=== PATIENT | female | born 1955 | race Caucasian/White ===

== ENCOUNTER → 2022-02-12 13:53 | Outpatient (BNVA) | payer OTHER, SELFPAY | PROVIDERS: PCP Pediatrics; Visit Provider Surgery | DX: L72.3 Sebaceous cyst (principal) | CPT/HCPCS: 99202 ==

== ENCOUNTER → 2022-02-19 13:36 | Outpatient (BNVA) | payer OTHER, SELFPAY | PROVIDERS: PCP Pediatrics; Visit Provider Surgery | DX: L72.3 Sebaceous cyst (principal) | CPT/HCPCS: 11403; 99212 ==

== ENCOUNTER 2022-02-19 16:53 | Outpatient (REF) | payer OTHER, SELFPAY | END 2022-02-19 16:54 | disposition home or self-care (01) | LOC: HO.LNP 16:53 | PROVIDERS: Visit Provider Surgery | DX: L72.3 Sebaceous cyst (principal) | CPT/HCPCS: 88304 ==

== ENCOUNTER 2022-12-25 11:05 | Outpatient (REF) | payer OTHER, SELFPAY ==
[2022-12-25 14:26] LABS: MANUAL DIFF FLAG NO
[2022-12-25 14:41] LABS: Basophils Percent Auto 0.6 % (0-2); Eosinophils Absolute Auto 0.1 X10*3/uL (0.0-0.4); Eosinophils Percent Auto 1.9 % (0-4); Hematocrit 41.7 % (37.0-47.0); Hemoglobin 13.5 g/dl (12.0-16.0); Imm Gran Abs Auto 0.01 X10*3/uL (0.00-0.03); Imm Gran Pct Auto 0.2 % (0.0-0.4); Lymphocytes Absolute Auto 2.1 X10*3/uL (1.2-4.9); Lymphocytes Percent Auto 32.7 % (20-40); Mean Corpuscular HGB Conc 32.4 g/dl (31.0-35.0); Mean Corpuscular Hemoglobin 28.8 pg (27.0-33.0); Mean Corpuscular Volume 89.1 fL (80.0-98.0); Mean Platelet Volume 10.3 fL (9.4-12.3); Monocytes Absolute Auto 0.4 X10*3/uL (0.1-1.2); Monocytes Percent Auto 6.7 % (2-11); Neutrophils Absolute Auto 3.7 x10*3/uL (2.0-8.3); Neutrophils Percent Auto 57.9 % (45-73); Platelet Count 284 X10*3/uL (160-400); Red Blood Count 4.68 X10*6/uL (4.20-5.50); Red Cell Distribution Width 13.1 % (11.0-16.0); White Blood Count 6.4 X10*3/uL (4.8-10.8)
[2022-12-25 14:52] LABS: Alanine Aminotransferase 14 U/L (0-31); Albumin Level 4.5 g/dL (3.5-5.0); Alkaline Phosphatase 73 U/L (39-117); Anion Gap 12 (12-20); Aspartate Amino Transferase 19 U/L (5-31); Bilirubin Total 1.1 mg/dL (0.0-1.0); Blood Urea Nitrogen 8 mg/dL (9-16); Calcium 9.6 mg/dL (8.4-10.2); Carbon Dioxide 27 mmol/L (22-29); Chloride 106 mmol/L (96-108); Estimated Glomerular Filt Rate > 60; Glucose Fasting 93 mg/dL (60-99); Potassium 3.6 mmol/L (3.3-5.1); Sodium 141 mmol/L (135-145); Total Protein 7.8 g/dL (6.5-8.0)
[2022-12-26 02:22] LABS: CT PCR NOT DETECTED (Not Detect.); NG PCR NOT DETECTED (Not Detect.)
[2022-12-26 16:00] LABS: BV Int Neg Control Negative (Negative); BV Int Pos Control Positive (Positive)
== END 2022-12-25 11:06 | disposition home or self-care (01) ==
LOC: HO.CHCLDS 11:05
PROVIDERS: Visit Provider Family Medicine
DX: R10.2 Pelvic and perineal pain (principal)
CPT/HCPCS: 0353U; 36415; 80053; 85025; 87086; 87480; 87510; 87660

== ENCOUNTER 2023-01-16 11:11 | Outpatient (REF) | payer OTHER, SELFPAY ==
--- NOTE | ~2023-01-16 | US_ITS ---
EXAMINATION: US PELVIS CLINICAL INFORMATION: Pelvic pain. COMPARISON: None available. TECHNIQUE: Transabdominal pelvic ultrasound was performed. The patient was offered transvaginal examination but she declined stating she had a painful transvaginal exam at [facility] 01/15/2023. FINDINGS: The patient reports hysterectomy and bilateral oophorectomy. No pelvic mass visible. US/US pelvic complete IMPRESSION: Hysterectomy and bilateral oophorectomy. No pelvic mass identified with transabdominal imaging. The patient declined transvaginal examination.
== END 2023-01-16 11:12 | disposition home or self-care (01) ==
LOC: HO.US 11:11
PROVIDERS: PCP Pediatrics; Visit Provider Family Medicine
DX: R10.2 Pelvic and perineal pain (principal)
CPT/HCPCS: 76856

== ENCOUNTER 2023-08-28 17:26 | Outpatient (REF) | payer OTHER, SELFPAY | END 2023-08-28 17:27 | disposition home or self-care (01) | LOC: HO.LNP 17:26 | PROVIDERS: Visit Provider General Practice | DX: R39.9 Unspecified symptoms and signs involving the genitourinary system (principal) | CPT/HCPCS: 87086 ==

== ENCOUNTER 2023-09-10 14:19 | Outpatient (REF) | payer OTHER, SELFPAY ==
--- NOTE | ~2023-09-10 | US_ITS ---
EXAMINATION: US RETROPERITONEAL LIMITED (RENAL ONLY) Indication: Microscopic hematuria with back pain EXAMINATION: Renal ultrasound. The right kidney is 10 x 5.4 x 5 cm. There is felt to be mild hydronephrosis. Etiology is indeterminate on this study. The left kidney does not demonstrate evidence for hydronephrosis. Several hypoechoic areas are demonstrated which may well represent cysts. Largest in the midpole 1 x 1 cm. Several foci of increased echogenicity are seen. One measuring 7 x 5 mm in the lower pole and another measuring 1.2 x 0.8 cm in the lower pole. Suspicious for renal calculi.. The kidney is suboptimally visualized. US/US renal BI IMPRESSION: Findings suggest mild hydronephrosis on the right etiology indeterminate. On the left findings suggest nonobstructing calculi associated with the left kidney and a few cysts are seen here. The left kidney is incompletely visualized.
== END 2023-09-10 14:20 | disposition home or self-care (01) ==
LOC: HO.US 14:19
PROVIDERS: PCP Pediatrics; Visit Provider Pediatrics
DX: R31.29 Other microscopic hematuria (principal); M54.9 Dorsalgia, unspecified; G89.29 Other chronic pain; Z87.442 Personal history of urinary calculi
CPT/HCPCS: 76775

== ENCOUNTER 2024-01-25 | Outpatient (REF) | payer OTHER, SELFPAY | END 2024-01-25 00:01 | disposition home or self-care (01) | LOC: HO.HHCLNP | PROVIDERS: Visit Provider Internal Medicine | DX: R39.9 Unspecified symptoms and signs involving the genitourinary system (principal) | CPT/HCPCS: 87086 ==

== ENCOUNTER 2024-11-04 09:07 | Outpatient (REF) | payer OTHER, SELFPAY ==
--- OUTSIDE RECORDS SUMMARY | 2024-11-04 09:12 | XMS_ITS | Clinical Summary ---
Author Organization [facility] ity Address [address] [place] [address] Care Team Providers Care Children Counselor Name Role Phone Unavailable Primary Care Provider Unavailabl e Social History Tobacco Use Types Packs/Day Years Used Date Smoking Tobacco: Never Assessed Comments Unknown Sex and Gender Information Value Date Recorded Sex Assigned at Not on file Legal Sex Female 1:55 AM EST Gender Identity Not on file Sexual Orientation Not on file Plan of Treatment Health Maintenance Due Date Last Done Comments Breast Cancer Screening 1955 DTaP,Tdap,and Td Vaccines (1 - Tdap) 1975 Pneumococcal Vaccine: 50+ Ye ars (1 of 1 - PCV) 2006 Zoster Vaccines (1 of 2) 2006 Colorectal Cancer Screening: Colonoscopy 03/23/2022 Falls Risk Assessment 03/23/2022 Hepatitis C Screening 03/23/2022 Osteoporosis Screening (Bone Density Screening) 03/23/2022 Social Influencers of Health Screening 03/23/2022 COVID-19 Vaccine (1 - 2023-2 5 season) 2023 Depression Screening 04/20/2024 Influenza Vaccine (#1) 2024 RSV Immunization Adult Patie nts (1 - 1-dose 75+ series) 2031 HIB Vaccines Aged Out No longer eligi ble based on patient's age to complete this topic HPV Vaccines Aged Out No longer eligi ble based on patient's age to complete this topic Hepatitis A Vaccines Aged Out No long er eligible based on patient's age to complete this topic Hepatitis B Vaccines Aged Out No long er eligible based on patient's age to complete this topic IPV Vaccines Aged Out No longer eligi ble based on patient's age to complete this topic MMR Vaccines Aged Out No longer eligi ble based on patient's age to complete this topic Meningococcal ACWY Vaccine Aged Out N o longer eligible based on patient's age to complete this topic Meningococcal B Vaccine Aged Out No l onger eligible based on patient's age to complete this topic RSV Immunization Patients Un ez 20 months Aged Out No longer eligible b ased on patient's age to complete this topic Varicella Vaccines Aged Out No longer eligible based on patient's age to complete this topic
--- OUTSIDE RECORDS SUMMARY | 2024-11-04 09:12 | XMS_ITS | Clinical Summary ---
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 022 Active naloxone (Narcan) 4 mg/0.1 mL nasal spray Administer 0.1 mL into affected nostril(s). 022 Active fluticasone (Flonase) 50 MCG/ACT nasal spray SPRAY ONCE IN EACH NOSTRIL ONCE DAILY 16 g 5 023 Active lidocaine (Lidoderm) 5 % patch Apply 1 patch topically in the morning. Remove & discard patch within 12 hours or as directed by MD. 30 patch 3 023 Active hydrocortisone acetate 1 % ointment Apply 1 Application. topically if needed in the morning, at noon, in the evening, and at bedtime (rectal itching). 30 g 1 024 Active witch keila-glycerin (Tucks) pad Apply topically if needed for irritation. 40 each 1 024 Active clotrimazole (Lotrimin) 1 % cream 023 Active cyanocobalamin (Vitamin B-12) 1000 MCG tablet Active hydrocortisone 1 % ointment APPLY TO THE AFFECTED AREA TOPICALLY NEEDED IN THE MORNING, AT NOON, IN THE EVENING, AND AT BEDTIME RECTALLY Active melatonin 10 MG tablet 04/25/2 024 Active Neomycin-Bacitrac in-Polymyxin (Triple Antibiotic) 3.5-400-5000 ointment 023 Active ondansetron ODT (Zofran-ODT) [address] 1 TAB UNDER THE TONGUE TO DISSOLVE EVERY 6 HOURS NEEDED FOR NAUSEA AND FOR VOMITING 024 Active prazosin (Minipress) 5 MG capsule 023 Active rOPINIRole (Requip) 0.25 MG tablet 024 Active Witch Keila (Hemorrhoidal) 50 % pads Apply topically if needed. 024 Active hydrocortisone 2.5 % creamIndications: Spider bite wound, accidental or unintentional, initial encounter Apply topically 2 times daily. 20 g 024 Active diphenhydrAMINE (Benadryl Allergy) 25 MG tabletIndications :Spider bite wound, accidental or unintentional, initial encounter Take 1 tablet (25 mg) by mouth every 6 (six) hours if needed for itching. 30 tablet 024 Active lisinopril 10 MG tablet Take 1 tablet (10 mg) by mouth Once per day. 30 tablet 11 024 2024 Active atorvastatin (Lipitor) 40 MG tabletIndications :Mixed hyperlipidemia TAKE 1 TABLET BY MOUTH ONCE DAILY AT BEDTIME 30 tablet 11 024 Active cholecalciferol VITAMIN D (Vitamin D-3) 50 MCG (2000 UT) capsuleIndication s:Vitamin D deficiency,Benign essential hypertension,West rgy, initial encounter Take 1 capsule (50 mcg) by mouth Once per day. 180 capsule 3 025 Active zolpidem (Ambien) 10 MG tabletIndications :Primary insomnia TAKE 1 TABLET BY MOUTH EVERY NIGHT AT BEDTIME NEEDED FOR SLEEP 30 tablet 025 Active loratadine (Claritin) 10 MG tabletIndications :Vitamin D deficiency,Benign essential hypertension,West rgy, initial encounter TAKE 1 TABLET BY MOUTH ONCE DAILY 90 tablet 3 025 Active zolpidem (Ambien) 10 MG tabletIndications :Primary insomnia TAKE 1 TABLET BY MOUTH ONCE DAILY AT BEDTIME NEEDED FOR SLEEP 30 tablet 025 Active Calcium 600 1500 (600 Ca) MG tabletIndications :Vitamin D deficiency,Postme nopausal osteoporosis TAKE 1 TABLET BY MOUTH two (2) times a day (BREAKFAST AND DINNER) 60 tablet 11 025 Active albuterol 108 (90 Base) MCG/ACT inhalerIndication s:Vitamin D deficiency,Benign essential hypertension,West rgy, initial encounter INHALE 2 PUFF BY MOUTH EVERY 4 HOURS NEEDED FOR SHORTNESS OF BREATH OR FOR WHEEZING 8.5 g 2 025 Active alendronate (Fosamax) 70 MG tabletIndications :Vitamin D deficiency,Postme nopausal osteoporosis TAKE 1 TABLET BY MOUTH ONCE A WEEK ON AN EMPTY STOMACH WITH A FULL GLASS OF WATER. REMAIN UPRIGHT FOR AT LEAST 30 MINUTES. 4 tablet 11 025 Active cyclobenzaprine (Flexeril) 10 MG tablet Take 1 tablet (10 mg) by mouth if needed in the morning, at noon, and at bedtime for muscle spasms for up to 10 days. 30 tablet 025 Active zolpidem (Ambien) 10 MG tabletIndications :Primary insomnia TAKE 1 TABLET BY MOUTH ONCE DAILY AT BEDTIME NEEDED FOR SLEEP 30 tablet 025 Active traMADol (Ultram) 50 MG tabletIndications :Chronic pain syndrome Take 1 tablet (50 mg) by mouth every 8 (eight) hours. Do not start before October 27, 2024. 84 tablet 025 Active ARIPiprazole (Abilify) 2 MG tablet 024 2024 Discontinued benztropine (Cogentin) 0.5 MG tablet 024 2024 Discontinued(T herapy completed) carbidopa-levodop a (Sinemet) 25-100 MG tablet 023 2024 Discontinued(T herapy completed) levoFLOXacin (Levaquin) 500 MG tablet 024 2024 Discontinued(T herapy completed) levothyroxine (Synthroid, Levoxyl) 137 MCG tablet 024 2024 Discontinued(T herapy completed) LORazepam (Ativan) 1 MG tablet 024 2024 Discontinued(T herapy completed) sertraline (Zoloft) 50 MG tablet 024 2024 Discontinued(T herapy completed) amoxicillin-clavu lanate (Augmentin) 875-125 MG tabletIndications :Recurrent acute suppurative otitis media of right ear without spontaneous rupture of tympanic membrane Take 1 tablet by mouth 2 times daily. 14 tablet 024 2024 Discontinued(T herapy completed) traMADol (Ultram) 50 MG tabletIndications :Chronic pain syndrome Take 1 tablet (50 mg) by mouth every 8 (eight) hours. 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 Sent US. Routine adult health maintenance 12/25/2022 Benign essential hypertension 05/07/2017 Assessment & Plan (12/25/2022 11:00 AM EDT): Advised patient to take blood pressure at home and bring readings on next visit. Increased Lisinopril 10mg for 20mg to stabilize blood pressure. Will follow up with PCP. 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 Depressive disorder 12/24/2011 Osteochondropathy 12/24/2011 Tobacco dependence syndrome 12/24/2011 Vitamin D deficiency 12/24/2011 Encounters Date Type Department Care Team Description 11/03/2024 2:15 PM EDT Office Visit [facility] [address] [place] [address] Linda Hope MD Postmenopausal osteoporosis (Primary Dx); Benign hypertension 11/03/2024 Travel 11/02/2024 Telephone [facility] [address] [place] [address] Linda Hope MD Chart Prep 10/27/2024 Patient Outreach [facility] [address] [place] [phone] Linda Hope MD Pre-visit Planning (SDOH screening negative and Tobacco screening negative) 10/12/2024 Refill [facility] [address] [place] [address] Di Andres RN Chronic pain syndrome 10/12/2024 Telephone [facility] [address] [place] [id number] Linda Hope MD Med Refill 10/04/2024 Results Follow-Up [facility] [address] [place] [address] Linda Hope MD MR Lumbar Spine w/o Contrast 09/29/2024 Refill [facility] [address] [place] [address] Di Andres RN 09/28/2024 Refill [facility] [address] [place] [address] Linda Hope MD Chronic pain syndrome 09/28/2024 Refill [facility] [address] [place] [phone] Linda Hope MD Primary insomnia 09/15/2024 3:30 PM EDT Office Visit [facility] [address] [place] [address] Linda Hope MD Acute left-sided low back pain with left-sided sciatica (Primary Dx); Kidney stones; Postmenopausal osteoporosis; Mixed hyperlipidemia; Benign essential hypertension 09/15/2024 Travel 09/15/2024 Telephone [facility] [address] [place] [address] Linda Hope MD Nurse Triage 09/12/2024 Refill [facility] [address] [place] [address] Amaya Irwin MD Vitamin D deficiency; Postmenopausal osteoporosis 09/08/2024 Telephone [facility] [address] [place] [address] Giancarlo Self MD No Show 09/07/2024 Telephone [facility] [address] [place] [address] Linda Hope MD Nurse Triage 09/07/2024 Telephone [facility] [address] [place] [address] Linda Hope MD MRI Order 09/06/2024 1:30 PM EDT Clinical Support [facility] [address] [place] [address] Di Andres RN Back pain, unspecified back location, unspecified back pain laterality, unspecified chronicity (Primary Dx); Long-term current use of opiate analgesic 09/06/2024 Travel 09/01/2024 Refill [facility] [address] [place] [address] Aditi Day MD Vitamin D deficiency; Benign essential hypertension; Allergy, initial encounter 08/29/2024 Refill [facility] [address] [place] [address] Linda Hope MD Chronic pain syndrome 08/29/2024 Refill [facility] [address] [place] [address] Linda Hope MD Primary insomnia from Last 3 Months Immunizations Immunization Administration Dates Next Due Influenza High-dose Quadriva lent Preservative Free 12/25/2022,02/05/2022 Influenza injectable quadriv alent IIV4 with preservative 01/28/2019,01/15/2018,02/12/2017 Influenza injectable quadriv alent preservative free 01/16/2021,01/07/2016 Influenza, High Dose Seasona l, Preservative Free 02/25/2024 Influenza, IIV3, injectable 02/09/2014 Influenza, Split (incl. cassandra fied surface antigen) 02/09/2013,12/24/2011 Moderna Covid-19 Vaccine 12+ 07/17/2020,06/20/19 21 Pneumococcal Conjugate PCV 20 08/19/2022 Tdap 08/07/2015 Zoster, live 10/09/2016 Social History Tobacco Use Types Packs/Day Years Used Date Smoking Tobacco: Former Cigarettes Passive Smoke Exposure: Current Smokeless Tobacco: Never Tobacco Cessation:Counseling Given: Not Answered Alcohol Use Standard Drinks/Week Comments Not Currently 0 (1 standard drink = 0.6 oz pur e alcohol) Depression Answer Date Recorded Patient Health Questionnaire-9 Score 3 05/12/2024 Patient Health Questionnaire-9 Score 3 05/12/2024 Last PHQ-9: Questionnaire Data Not on file 0 05/12/2024 Housing Stability Answer Date Recorded What is your housing situation today? I have paulacailin vasquez 02/18/[address] you li ve. Do you have problems with any of the following? None of the above 02/18/2024 Food Insecurity Answer Date Recorded Within the past 12 months, y ou worried that your food would run out before you got money to buy more: Never True 02/18/2024 Within the past 12 months,th e food you bought just didn't last and you didn't have enough money to get more: Never True Transportation Answer Date Recorded In the past 12 months, has l ack of transportation kept you from medical appts, meetings, work or from getting things needed for daily living? No 02/18/2024 Utilities Answer Date Recorded In the past 12 months, has t he electric, gas, oil or water company threatened to shut off services in your home? No 02/18/2024 Depression Answer Date Recorded Patient Health Questionnaire-2 Score 2 05/12/2024 Internet Access Answer Date Recorded Internet Access Q1 Yes 02/18/2024 Internet Access Q2 Not on file 02/18/2024 Comments No Sex and Gender Information Value Date Recorded Sex Assigned at Female 02/17/2022 10:19 AM EDT Legal Sex Female 10:19 AM EDT Gender Identity Female 02/17/2022 10:19 AM EDT Sexual Orientation Straight 02/17/2022 10 :19 AM EDT Last Filed Vital Signs Vital Sign Reading Time Taken Comments Blood Pressure 150/90 11/03/2024 2:05 PM EDT Pulse 72 11/03/2024 2:05 PM EDT Temperature 36.9 C (98.4 F) 11/03/2024 2:05 PM EDT Respiratory Rate 16 11/03/2024 2:05 PM EDT Oxygen Saturation 99% 04/07/2024 1:49 PM EST Inhaled Oxygen Concentration - - Weight 56.7 kg (125 lb) 11/03/2024 2:05 PM EDT Height 157.5 cm (5' 2 ) 11/03/2024 2:05 PM EDT Body Mass Index 22.86 11/03/2024 2:05 PM EDT Plan of Treatment Upcoming Encounters Date Type Department Care Team (Late st Contact Info) Description 12/06/2024 1:30 PM EDT Clinical Support [facility] [address] [place] [address] Di Andres, RN [address] [place] [address] Health Maintenance Due Date Last Done Comments CT Colonography 1956 FIT DNA/Cologuard 1956 FIT 1955 FOBT 1955 Sigmoidoscopy 1955 Hepatitis C Screening 1974 Zoster Vaccines (2 of 3) 12/04/2016 10/09/2016 COVID-19 Vaccine ( season) 2023 04/09/2021, 07/17/2020, 06/19/2020 Influenza Vaccine (#1) 2024 , 12/25/2022, 02/05/2022, Additional history exists Mammogram 01/12/2025 01/13/2024, 01/23/2022 Alcohol/Substance Use Screening 05/12/2025 05/12/2024 Depression Screening 05/12/2025 05/12/2024, 05/12/19 DTaP/Tdap/Td Vaccines (2 - Td or Tdap) 08/06/2025 08/07/2015 SDOH Screening 10/27/2025 10/27/2024 Tobacco Screening 11/03/2025 11/03/2024 Lipid Panel 01/30/2027 01/30/2022, 08/19, 05/31/2020 RSV Patients and Patients Aged 60 years or older (1 - 1-dose 75+ series) 2031 Colonoscopy 12/15/2033 12/16/2023, 11/19, 01/29/2016 Colorectal Cancer Screening 12/15/2033 Cervical Cancer Screening Discontinued HPV/Cotest Discontinued 09/06/2020 Pap Smear Discontinued 09/06/2020 Pneumococcal Vaccine: 50+ Years Completed 08/19/2022 HIB Vaccines Aged Out No longer eligi [...] patient's age to complete this topic Meningococcal Vaccine Aged Out No caitlyn reyna eligible based on patient's age to complete this topic RSV under 20 months Aged Out No longe r eligible based on patient's age to complete this topic Rotavirus Vaccines Aged Out No longer eligible based on patient's age to complete this topic Procedures Procedure Name Priority Date/Time Associated Diagnosis Comments MR LUMBAR SPINE WO CONTRAST Routine 09/29/2024 Acute left-sided low back pain with left-sided sciatica POCT URINALYSIS DIPSTICK Routine 09/15/2024 3:47 PM EDT Acute left-sided low back pain with left-sided sciatica POCT [place]O-14 URINE DRUG SCREEN Routine 09/06/2024 1:00 PM EDT Long-term current use of opiate analgesic Back pain, unspecified back location, unspecified back pain laterality, unspecified chronicity HM MAMMOGRAPHY Routine 01/13/2024 8:56 AM EDT COLONOSCOPY Routine 12/16/2023 2:12 PM EDT LIPID PANEL, STANDARD Routine 01/30/2022 10:31 AM EDT HPV MRNA E6/E7 Routine 09/06/2020 4:14 PM EDT THINPREP PAP Routine 09/06/2020 4:14 PM EDT from Last 3 Months or Most Recently Relevant to Health Maintenance Results * MR Lumbar Spine w/o Contrast (09/29/2024) Anatomical Region Laterality Modality Spine, L-spine Magnetic Resonan ce us Linda Hope MD IMG MRI PROCEDURES Final Resu lt * (ABNORMAL) POCT Urinalysis (09/15/2024 3:47 PM EDT) Color, UA Yellow Clarity, UA Cloudy Glucose, UA Negative Bilirubin, UA Negative Ketones, UA Negative Spec Grav, UA 1.020 Blood, UA Negative Negative, None Detected pH, UA 7.5 Protein, UA Negative Urobilinogen, UA 0.2 Leukocytes, UA Few 15(A) Negative, Rare, Trace Comment:small Nitrite, UA Negative Negative, None Detected Appearance, UA cloudy QC Media Lot # [id number] Lot# Expiration Date Urine 09/15/2024 3:47 PM EDT Linda Hope MD POINT OF CARE TEST ENTER/EDIT ORDERABLES Final Result * POCT RAMIRO-14 Urine Drug Screen (09/06/2024 1:00 PM EDT) Urine Urine specimen obtained by clean catch procedure / Unknown 09/06/2024 1:00 PM EDT Narrative Di Andres RN - 09/06/2024 1:00 PM EDT negative AMP, BAR, BUP, BZO, MAICOL, FTY, MDMA, MET, MOP, MTD, OXY, PCP, TCA, THC. Lot# [id number] Exp: 12-07-25 Linda Hope MD POINT OF CARE TEST ENTER/EDIT ORDERABLES Final Result * Hm Mammography (01/13/2024 8:56 AM EDT) Anatomical Region Laterality Modality Other Historical Provider HEALTH MAINTENANCE Final Result * Colonoscopy (12/16/2023 2:12 PM EDT) Anatomical Region Laterality Modality Endoscopy Historical Provider ENDOSCOPY PROCEDURE ORDER ZITA Edited Result - Final * (ABNORMAL) LIPID PANEL, STANDARD (01/30/2022 10:31 AM EDT) Chol/HDLC Ratio 3.2 <5.0 (calc) [facility] Cholesterol, Total 190 <200 mg/dL [facility] HDL Cholesterol 60 > OR = 50 mg/dL [facility] LDL Cholesterol 102(H) mg/dL (calc) [facility] Comment: Reference range: <100 Desirable range <100 mg/dL for primary prevention; <70 mg/dL for patients with CHD or diabetic patients with > or = 2 CHD risk factors. LDL-C is now calculated using the Partha-Bergman calculation, which is a validated novel method providing better accuracy than the Friedewald equation in the estimation of LDL-C. Partha SS et al. DAVONTE. 2013;310(19): 3747-4095 (http://education.[employer]/faq/YBE390) Non-HDL Cholesterol 130(H) <130 mg/dL (calc) [facility] Comment: For patients with diabetes plus 1 major ASCVD risk factor, treating to a non-HDL-C goal of <100 mg/dL (LDL-C of <70 mg/dL) is considered a therapeutic option. Triglycerides 166(H) <150 mg/dL CONVE [facility] 01/30/2022 10:3 1 AM EDT Linda Hope MD LAB BLOOD ORDERABLES Final Re sult [facility] * THINPREP PAP (09/06/2020 4:14 PM EDT) Clinical Information: None given [facility] COMMENT SEE COMMENT [facility] Comment: EXPLANATORY NOTE: The Pap is a screening test for cervical cancer. It is not a diagnostic test and is subject to false negative and false positive results. It is most reliable when a satisfactory sample, regularly obtained, is submitted with relevant clinical findings and history, and when the Pap result is evaluated along with historic and current clinical information. Cco: SEE COMMENT [facility] Comment: HJP, CT(ASCP) CT screening location: [place] [address] Interpretation/Res ult: SEE COMMENT [facility] Comment: Negative for intraepithelial lesion or malignancy. Atrophic pattern; predominantly parabasal cells LMP: NONE [facility] Prev. BX: NONE [facility] Prev. PAP: NONE [facility]IV[facility] SOURCE: None given [facility] Statement Of Adequacy: SATISFACTORY FOR EVALUATION [facility] 09/06/2020 4:14 PM EDT Linda Hope MD LAB PATHOLOGY ORDERABLES Ruth randle Result [facility] [address] * HPV mRNA E6/E7 (09/06/2020 4:14 PM EDT) HPV nRNA E6/E7 Not Detected Not Detected [facility] Comment: Methodology: Electrical Engineering Technician-Mediated Amplification This assay detects E6/E7 viral messenger RNA (mRNA) from 14 high-risk HPV types (16,18,31,33,35,39,45,51,52,56,58,59,66,68). The analytical performance characteristics of this assay have been determined by [employer]. The modifications have not been cleared or approved by the FDA. This assay has been validated pursuant to the CLIA regulations and is used for clinical purposes. 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
--- OUTSIDE RECORDS SUMMARY | 2024-11-04 09:12 | XMS_ITS | Data Portability ---
Author Organization [employer] [facility], [facility] Address [address] [place] [address] Care Team Providers Care Merchandise Presentation Associate Name Role Phone HIM CCA OTHER Assessment Encounter Date Assessment Date Assessment LastModified by Organization Details LastModified Time 10/19/2023 10/19/2023 I provided real -time medical direction via phone for this encounter and was available for additional phone-based assistance as needed. I have reviewed and agree with the Assessment and Plan as documented by the Poultry Offal Worker. Patient given the opportunity to ask questions. Our service contacted for an assessment of: URI symptoms As per above, patient developed mild URI symptoms over the past 4 to 5 days after her significant other returned from a trip with similar symptoms. She was concerned about COVID and asked further a visit. She denies chest pain shortness of breath and dyspnea on exertion. She denies loss of smell and denies abdominal pain or diarrhea or constipation. Per millwright on the scene, COVID is positive and strep as well as flu are negative. Vital signs are stable and the patient is afebrile. Impression: COVID positive with mild symptoms Plan: Patient has no underlying medical issues and she is on the cusp of the effectiveness of Paxlovid. She has actually not interested in taking it in is using oedl-mvl-cmmnrho relief for her symptoms which are rapidly improving. Encouraged her to continue with that course of action and red flags discussed as when to seek a higher level of care. We discussed the diagnostic uncertainty of home visits and the risk associated with this. In this case, the patient and I felt this to be an acceptable and reasonable amount of risk given the benefit of avoiding an ED visit. We discussed the need to seek care urgently/emergentl y in the setting of any new or worsening serious symptoms, particularly fever chills lightheadedness [email or web address] Not available 10/19/2023 18:04:22 Plan of Treatment Reminders Order Date Submit Date Provider Last Modified By Organization Details Last Modified Time Details Appointments None recorded. Lab rapid SARS CoV 2 Ag, QL IA, respiratory specimen [address] [place] [address], [address] [place] [address], [address] [place] [address] 4 18:04:31 rapid flu (A+B) [address] [place] [address], [address] [place] [address] 4 18:04:32 rapid strep group A, throat [address] [place] [address], [address] [place] [address] 4 18:04:28 Referral None recorded. Procedures None recorded. Surgeries None recorded. Imaging None recorded. Medication Orders None recorded. Patient TargetsNo targets recorded. Patient InstructionsNo instructions recorded. Reason for Referral None Reported. Results Created Date Observation Date Name Description Value Unit Range Abnormal Flag Note LastModifiedBy Organization Detail LastModifiedTime 10/19/1910/19/2023 rapid strep group A, throa t Strep negati ve Not Available [facility] ed [address] [place] [address], [address] [place] [address] 10/19/2023 18:02:20 10/19/19 24 10/19/2023 rapid flu (A+B) Flu negati ve Not Available [facility] ed [address] [place] [address], [address] [place] [address] 10/19/2023 18:02:19 10/19/1910/19/2023 rapid SARS CoV 2 Ag, QL IA, respi rator y speci men rapid SARS CoV 2 Ag, QL IA, respiratory specimen positi ve Not Available [facility] ed [address] [place] [address], [address] [place] [address] 10/19/2023 18:02:18 Result Notes None recorded. Medical Equipment None Reported. Allergies No known drug allergies Medications Name Sig Start Date Stop Date Status Note LastModified by Organization Details LastModified Time atorvastatin 40 mg tablet TAKE 1 TABLET BY MOUTH ONCE DAILY AT BEDTIME active Not Available Not Available No t Available hydrocortison e 1 % topical ointment APPLY TO THE AFFECTED AREA TOPICALLY NEEDED IN THE MORNING, AT NOON, IN THE EVENING, AND AT BEDTIME RECTALLY active Not Available Not Available No t Available lisinopril 20 mg tablet TAKE 1 TABLET BY MOUTH ONCE DAILY IN THE MORNING active Not Available Not Available No t Available alendronate 70 mg tablet TAKE 1 TABLET BY MOUTH ONCE A WEEK ON AN EMPTY STOMACH WITH A FULL GLASS OF WATER. REMAIN UPRIGHT FOR AT LEAST 30 MINUTES. active Not Available Not Available No t Available sulfamethoxaz ole 800 mg-trimethopr im 160 mg tablet TAKE 1 TABLET BY MOUTH two (2) times a day FOR 3 DAYS active Not Available Not Available No t Available tramadol 50 mg tablet TAKE 1 TABLET BY MOUTH EVERY 8 HOURS active Not Available Not Available No t Available lisinopril 10 mg tablet TAKE 1 TABLET BY MOUTH ONCE DAILY active Not Available Not Available No t Available Calcium-600 600 mg (as calcium carbonate 1,500 mg) tablet TAKE 1 TABLET BY MOUTH two (2) times a day (BREAKFAST AND DINNER) active Not Available Not Available No t Available hydrocortison e 2.5 % topical cream APPLY TO THE AFFECTED AREA TOPICALLY two (2) times a day active Not Available Not Available No t Available lisinopril 5 mg tablet TAKE 1 TABLET BY MOUTH ONCE DAILY IN THE MORNING active Not Available Not Available No t Available zolpidem 10 mg tablet TAKE 1 TABLET BY MOUTH EVERY NIGHT AT BEDTIME NEEDED FOR SLEEP active Not Available Not Available No t Available albuterol sulfate HFA 90 mcg/actuation aerosol inhaler INHALE 2 PUFF BY MOUTH EVERY 4 HOURS NEEDED FOR SHORTNESS OF BREATH OR FOR WHEEZING active Not Available Not Available No t Available ondansetron 4 mg disintegratin g tablet PLACE 1 TAB UNDER THE TONGUE TO DISSOLVE EVERY 6 HOURS NEEDED FOR NAUSEA AND FOR VOMITING active Not Available Not Available No t Available fluticasone propionate 50 mcg/actuation nasal spray,suspens ion SPRAY ONCE IN EACH NOSTRIL ONCE DAILY active Not Available Not Available N ot Available doxycycline hyclate 100 mg tablet TAKE 1 TABLET BY MOUTH two (2) times a day FOR 10 DAYS. TAKE WITH rosalnie ileno de agua. No te a acomeste rios al menos 30 minutos despues active Not Available Not Available No t Available loratadine 10 mg tablet TAKE 1 TABLET BY MOUTH ONCE DAILY active Not Available Not Available No t Available amoxicillin 875 mg-potassium clavulanate 125 mg tablet TAKE 1 TABLET BY MOUTH two (2) times a day active Not Available Not Available No t Available Urinary Pain Relief 95 mg tablet TAKE 1 TABLET BY MOUTH NEEDED IN THE MORNING, AT NOON, AND AT BEDTIME FOR espasmos en la verjiga active Not Available Not Available No t Available nitrofurantoi n monohydrate/m acrocrystals 100 mg capsule TAKE 1 CAPSULE BY MOUTH two (2) times a day FOR 7 DAYS active Not Available Not Available No t Available GaviLyte-G 236 gram-22.74 gram-6.74 gram-5.86 gram oral solution MIX WITH WATER TO fill line AND DRINK 240ml BY MOUTH EVERY 10 MINUTES active Not Available Not Available No t Available Vitamin D3 50 mcg (2,000 unit) capsule TAKE 1 CAPSULE BY MOUTH two (2) times a day active Not Available Not Available No t Available Hemorrhoidal (witch keila) 50 % topical pads APPLY TOPICALLY NEEDED active Not Available Not Available No t Available Malina-Dryl 25 mg tablet TAKE 1 TABLET BY MOUTH EVERY 6 HOURS NEEDED active Not Available Not Available No t Available Vitals Date Recorded Body weight Body height Body temperature Oxygen saturation Oxygen saturation in Arterial blood by Pulse oximetry Respiratory rate Heart rate Systolic And Diastolic Provider Name and Address Organization Details Last Updated DateTime 4 32180.8 16 g 157.48 cm 98.6 [degF] 98 % 98 % 16 /min 86 /min 152/92 mm[Hg] Not Available [employer] 4 18:01:21 Social History None recorded. Functional Status None recorded. Mental Status None recorded. Family History Nothing Reported. Medical History No medical history recorded. Gynecological HistoryNo gynecological history recorded. Obstetrics History GPAL:G 0 P 0 0 0 0 Past Encounters Encounter ID Performer Location Encounter Start Date Encounter Closed Date Diagnosis/Indication Diagnosis SNOMED-CT Code Diagnosis ICD10 Code Diagnosis Note [id number] Oliva Watson MD [facility] [address] [place] [phone] 10/19/2023 18:01:19 10/19/2023 18:46:20 COVID-19 662074734 U07.1 Health Concerns Section Related Observation LastModified by Organization Detai ls LastModified Time None Recorded Concern Status LastModified by Organization Details LastModified Time None Recorded Advance Directives Directive None Recorded Payers Insurance Date Sequence Insurance Name Policy Number Policy Chen Covered Member ID Chen Member ID Guarantor Name 10/20/2023 1 [facility] - DOS ON OR AFTER 2022 - DUAL ELIGIBLE - SENIOR LIVING OPTIONS AND ONE CARE (MEDICARE REPLACEMENT/AD VANTAGE - HMO) Roz Caro [id number] Roz Caro Notes Date Note Type Note Provider Name and Address Organization Details Recorded Time 10/19/2023 text/html CRC Nurse Triage Notes (Tatianna Lucas): Reason For Request: Patient has had a Head ache for 3 days, and patient has Jaw and Ear pain also, neck pain. Fever also, and a Dry cough. Feels weak, and tested Negative for Covid. Patient also has a Mole near her ear, and history of Kidney issues. Chief Complaints: Headache, Fever/Chills, Pain PMH: Hypertension, Other Allergies: No Known Comments: Patient having symptoms of headaches, fever, body aches, and non-productive cough x3 days. Denies chest pain. Taking Tylenol every 4 hours and Theraflu with no relief of symptoms. Poultry Offal Worker POC Test Results from Brandon Poon - ALS Rapid influenza antigen (14:47:01) Flu: - Rapid COVID antigen (14:47:02) COVID: + Rapid strep test (14:47:03) Strep: - ................... ................... ................... ................... ................... ................... ................... ........ Poultry Offal Worker Note From Brandon Poon: Pt reports 4 days of mild URI sx including dry cough, chills and CURRAN. Pt endorses staying well hydrated and using acetaminophen and throat lozenges. Pt denies CP, SOB, WYATT, known fevers, n/v/d. Pt s boyfriend traveled out of state for work ten days ago and he reports having several days of similar sx. Pt is alert, NAD. VSS. Afebrile. Non focal neuro exam. Normal gait. Lungs CTA. Benign ABD exam. No LE edema. Rapid covid positive, flu and strep negative. Pt advised to continue acetaminophen and throat lozenges as needed and to add robitussin or mucinex DM. Pt instructed to stay well hydrated, eat small meals when able to and to f/u with PCP. Red flags reviewed. ................... ................... ................... ................... ................... ................... ................... ........ Disposition: Fulfilled Oliva Watson MD [address] [facility],[address], [place], [address], [employer] 10/19/2023 18:05:08 OBGyn Episode No OBEpisode recorded.
[2024-11-04 13:49] LABS: MANUAL DIFF FLAG NO
[2024-11-04 14:01] LABS: Hematocrit 39.3 % (37.0-47.0); Hemoglobin 13.1 g/dl (12.0-16.0); Imm Gran Abs Auto 0.02 X10*3/uL (0.00-0.03); Imm Gran Pct Auto 0.2 % (0.0-0.4); Lymphocytes Absolute Auto 2.6 X10*3/uL (1.2-4.9); Mean Corpuscular HGB Conc 33.3 g/dl (31.0-35.0); Mean Corpuscular Hemoglobin 29.3 pg (27.0-33.0); Mean Corpuscular Volume 87.9 fL (80.0-98.0); NRBC Abs Auto 0.000 X10*3/uL (0.0-0.012); NRBC Pct Auto 0.0 /100WBC (0.0-0.2); Platelet Count 292 X10*3/uL (160-400); Red Blood Count 4.47 X10*6/uL (4.20-5.50); White Blood Count 8.0 X10*3/uL (4.8-10.8)
[2024-11-04 14:24] LABS: Alanine Aminotransferase 15 U/L (0-31); Albumin Level 4.5 g/dL (3.5-5.0); Alkaline Phosphatase 85 U/L (39-117); Anion Gap 11 (12-20); Aspartate Amino Transferase 25 U/L (5-31); Blood Urea Nitrogen 11 mg/dL (9-16); Calcium 9.2 mg/dL (8.4-10.2); Carbon Dioxide 27 mmol/L (22-29); Chloride 108 mmol/L (96-108); Cholesterol 188 mg/dL (<200); Estimated Glomerular Filt Rate > 60; HDL Cholesterol 48 mg/dL (>40); Potassium 3.6 mmol/L (3.3-5.1); Sodium 142 mmol/L (135-145); Total Protein 7.5 g/dL (6.5-8.0); Triglycerides 160 mg/dL (<150)
[2024-11-04 14:43] LABS: Microalbum/Creatinine Ratio Ur 22.6 ug/mg cr (<30)
== END 2024-11-04 09:08 | disposition home or self-care (01) ==
LOC: HO.CHCLDS 09:07
PROVIDERS: Visit Provider Pediatrics
DX: M81.0 Age-related osteoporosis without current pathological fracture (principal); I10 Essential (primary) hypertension
CPT/HCPCS: 36415; 80048; 80061; 80076; 82043; 82306; 82570; 85025

== ENCOUNTER 2024-11-10 11:19 | Outpatient (REF) | payer OTHER, SELFPAY ==
--- NOTE | ~2024-11-10 | XR_ITS ---
EXAMINATION: XR CHEST 2 VIEWS HISTORY: cough and fever COMPARISON: There are no prior studies available for comparison. FINDINGS: PA and lateral views of the chest are submitted. The lungs are expanded and clear. There is no pleural effusion, pneumothorax, or pulmonary vascular congestion. The heart is normal in size. The bones are intact. XR/XR chest 2V IMPRESSION: Clear lungs. Electronically signed by: Olaf Contreras MD 11/10/2024 12:16 PM EDT
--- OUTSIDE RECORDS SUMMARY | 2024-11-10 12:17 | XMS_ITS | Data Portability ---
Author Organization [employer] [facility], [facility] Address [address] [place] [address] Care Team Providers Care Zigzag Stitcher Name Role Phone HIM CCA OTHER Assessment Encounter Date Assessment Date Assessment LastModified by Organization Details LastModified Time 10/19/2023 10/19/2023 I provided real -time medical direction via phone for this encounter and was available for additional phone-based assistance as needed. I have reviewed and agree with the Assessment and Plan as documented by the Jewel Hole Driller. Patient given the opportunity to ask questions. [...] abdominal pain or diarrhea or constipation. Per certified pharmacy technician on the scene, COVID is positive and strep as well as flu are negative. Vital signs are stable and the patient is afebrile. Impression: COVID positive with mild symptoms Plan: Patient has no underlying medical issues and she is on the cusp of the effectiveness of Paxlovid. She has actually not interested in taking it in is using dfav-sel-wrjuamu relief for her symptoms which are rapidly [...] 2 Ag, QL IA, respiratory specimen [address] [place] [address], [address] [place] [address], [address] [place] [address] 4 18:04:31 rapid flu (A+B) [address] [place] [address], [address] [place] [address] 4 18:04:32 rapid strep group A, throat [address] [place] [address], [address] [place] [address] 4 18:04:28 Referral None recorded. Procedures None recorded. Surgeries None recorded. Imaging None recorded. Medication Orders None recorded. Patient TargetsNo targets recorded. Patient InstructionsNo instructions recorded. Reason for Referral None Reported. Results Created Date Observation Date Name Description Value Unit Range Abnormal Flag Note LastModifiedBy Organization Detail LastModifiedTime 10/19/1910/19/2023 rapid strep group A, throa t Strep negati ve Not Available [facility] ed [address] [place] [address], [address] [place] [address] 10/19/2023 18:02:20 10/19/19 24 10/19/2023 rapid flu (A+B) Flu negati ve Not Available [facility] ed [address] [place] [address], [address] [place] [address] 10/19/2023 18:02:19 10/19/1910/19/2023 rapid SARS CoV 2 Ag, QL IA, respi rator y speci men rapid SARS CoV 2 Ag, QL IA, respiratory specimen positi ve Not Available [facility] ed [address] [place] [address], [address] [place] [address] 10/19/2023 18:02:18 Result Notes None recorded. Medical [...] a day FOR 10 DAYS. TAKE WITH rosaline ileno de agua. No te a acomeste [...] Address Organization Details Last Updated DateTime 4 08089.8 16 g 157.48 cm 98.6 [degF] 98 % 98 % 16 /min 86 /min 152/92 mm[Hg] Not Available [email or web address] 4 18:01:21 Social History None recorded. Functional Status None recorded. Mental Status None recorded. Family History Nothing Reported. Medical History No medical history recorded. Gynecological HistoryNo gynecological history recorded. Obstetrics History GPAL:G 0 P 0 0 0 0 Past Encounters Encounter ID Performer Location Encounter Start Date Encounter Closed Date Diagnosis/Indication Diagnosis SNOMED-CT Code Diagnosis ICD10 Code Diagnosis Note [id number] Oliva Watson MD [facility] [address] [place] [phone] 10/19/2023 18:01:19 10/19/2023 18:46:20 COVID-19 [id number] U07.1 Health Concerns Section Related Observation LastModified by Organization Detai ls LastModified Time None Recorded Concern Status LastModified by Organization Details LastModified Time None Recorded Advance Directives Directive None Recorded Payers Insurance Date Sequence Insurance Name Policy Number Policy Chen Covered Member ID Chen Member ID Guarantor Name 10/20/[address] [facility] - DOS ON OR AFTER 2022 - DUAL ELIGIBLE - SHELTER OPTIONS AND ONE CARE (MEDICARE REPLACEMENT/AD VANTAGE - HMO) Roz Caro [id number] Roz Caro Notes Date Note Type Note [...] and Theraflu with no relief of symptoms. Jewel Hole Driller POC Test Results from Brandon Poon - ALS Rapid influenza antigen (14:47:01) Flu: - Rapid COVID antigen (14:47:02) COVID: + Rapid strep test (14:47:03) Strep: - ................... ................... ................... ................... ................... ................... ................... ........ Jewel Hole Driller Note From Brandon Poon: Pt reports 4 [...] ........ Disposition: Fulfilled Oliva Watson MD [address] [facility],[address], [place], [address], [facility] 10/19/2023 18:05:08 OBGyn Episode No OBEpisode recorded.
--- OUTSIDE RECORDS SUMMARY | 2024-11-10 12:17 | XMS_ITS | Clinical Summary ---
Author Organization [employer] Address [address] [place] [address] 7 [place] [address] Care Team Providers Care Banking Consultant Name Role Phone Linda Hope MD Primary Care Provider [phone] Allergies No known active allergies Medications lidocaine (Lidoderm) 5 % patch 1 patch in the morning. Active naloxone (Narcan) 4 mg/0.1 mL nasal spray Administer 0.1 mL into affected nostril(s). 022 Active lidocaine (Lidoderm) 5 % patch Apply [...] BEDTIME RECTALLY Active melatonin 10 MG tablet Active Neomycin-Bacitrac in-Polymyxin (Triple Antibiotic) 3.5-400-5000 ointment 023 Active ondansetron ODT (Zofran-ODT) [address] 1 TAB UNDER THE TONGUE TO DISSOLVE EVERY 6 HOURS NEEDED FOR NAUSEA AND FOR VOMITING 024 Active prazosin (Minipress) 5 MG capsule 023 Active rOPINIRole (Requip) 0.25 MG tablet Active Witch Keila (Hemorrhoidal) 50 % pads [...] AND DINNER) 60 tablet 11 025 Active alendronate (Fosamax) 70 MG tabletIndications [...] start before October 27, 2024. 84 tablet Active Nirmatrelvir&Tu navir 300/100 (Paxlovid, 300/100,) 20 x 150 MG & 10 x 100MG tablet therapy pack Take 1 Dose by mouth 2 times daily for 5 days. 30 each 025 2024 Active benzonatate (Tessalon Perles) 100 MG capsule Take 1 capsule (100 mg) by mouth if needed in the morning, at noon, and at bedtime for cough for up to 10 days. Do not crush or chew. 30 capsule 025 2024 Active acetaminophen (Tylenol 8 Hour) 650 MG ER tablet Take 1 tablet (650 mg) by mouth every 8 (eight) hours if needed for mild pain. Do not crush, chew, or split. 40 tablet 1 025 2024 Active albuterol 108 (90 Base) MCG/ACT inhalerIndication s:Vitamin D deficiency,Benign essential hypertension,West rgy, initial encounter INHALE 2 PUFF BY MOUTH EVERY 4 HOURS NEEDED FOR SHORTNESS OF BREATH OR FOR WHEEZING 18 g 1 025 Active fluticasone (Flonase) 50 MCG/ACT nasal spray Administer 2 sprays into each nostril Once per day. Shake gently. Before first use, prime pump. After use, clean tip and replace cap. 16 g 5 Active guaiFENesin (Mucinex) 600 MG 12 hr tablet Take 1 tablet (600 mg) by mouth if needed in the morning and at bedtime for cough or congestion. Do not crush, chew, or split. 30 tablet 025 2025 Active naproxen (Naprosyn) 500 MG tablet Take 1 tablet (500 mg) by mouth if needed in the morning and at bedtime for mild pain. 30 tablet 025 2025 Active fluticasone (Flonase) 50 MCG/ACT nasal spray SPRAY ONCE IN EACH NOSTRIL ONCE DAILY 16 g 5 023 2024 Discontinued(R eorder (will not trigger notification to Pharmacy)) ARIPiprazole (Abilify) 2 MG tablet 2024 Discontinued benztropine (Cogentin) 0.5 MG tablet 2024 Discontinued(T herapy completed) carbidopa-levodop a (Sinemet) 25-100 MG tablet 023 2024 Discontinued(T herapy completed) levoFLOXacin (Levaquin) 500 MG tablet 2024 Discontinued(T herapy completed) levothyroxine (Synthroid, Levoxyl) 137 MCG tablet 2024 Discontinued(T herapy completed) LORazepam (Ativan) 1 MG tablet 2024 Discontinued(T herapy completed) sertraline (Zoloft) 50 MG tablet 2024 Discontinued(T herapy completed) amoxicillin-clavu lanate (Augmentin) 875-125 MG tabletIndications :Recurrent acute suppurative otitis media of right ear without spontaneous rupture of tympanic membrane Take 1 tablet by mouth 2 times daily. 14 tablet 024 2024 Discontinued(T herapy completed) albuterol 108 (90 Base) MCG/ACT inhalerIndication s:Vitamin D deficiency,Benign essential hypertension,West rgy, initial encounter INHALE 2 PUFF BY MOUTH EVERY 4 HOURS NEEDED FOR SHORTNESS OF BREATH OR FOR WHEEZING 8.5 g 2 025 2024 Discontinued(R eorder (will not trigger notification to Pharmacy)) traMADol (Ultram) 50 MG tabletIndications :Chronic pain [...] Encounters Date Type Department Care Team Description 11/10/2024 10:40 AM EDT Office Visit [facility] [address] [address] COVID-19 (Primary Dx); Vitamin D deficiency; Benign essential hypertension; Allergy, initial encounter 11/10/2024 Travel 11/04/2024 Results Follow-Up [facility] [address] [place] [address] Linda Hope MD Albumin, Random Urine W/Creatinine, CBC auto differential, Lipid Panel, Standard, Additional followed-up results: 3 11/03/2024 2:15 PM EDT Office Visit [facility] [address] [place] [address] Linda Hope MD Postmenopausal osteoporosis (Primary Dx); Benign hypertension; Kidney stones; Depressive disorder; Routine adult health maintenance; Vitamin D deficiency; Mixed hyperlipidemia 11/03/2024 Travel 11/02/2024 Telephone [facility] [address] [place] [address] Linda Hope MD Chart Prep 10/27/2024 Patient Outreach [facility] [address] [place] [phone] Linda Hope MD Pre-visit Planning (SDOH screening negative and Tobacco screening negative) 10/12/2024 Refill [facility] [address] [place] [address] Di Andres RN Chronic pain syndrome 10/12/2024 Telephone [facility] [address] [place] [phone] Linda Hope MD Med Refill 10/04/2024 Results Follow-Up [facility] [address] [place] [address] Linda Hope MD MR Lumbar Spine w/o Contrast 09/29/2024 Refill [facility] [address] [place] [address] Di Andres, ROLANDO 09/28/2024 Refill [facility] [address] [place] [phone] Linda Hope MD Chronic pain syndrome 09/28/2024 Refill [facility] [address] [place] [phone] Linda Hope MD Primary insomnia 09/15/2024 3:30 PM EDT Office Visit [facility] [address] [place] [address] Linda Hope MD Acute left-sided low back pain with left-sided sciatica (Primary Dx); Kidney stones; Postmenopausal osteoporosis; Mixed hyperlipidemia; Benign essential hypertension 09/15/2024 Travel 09/15/2024 Telephone [facility] [address] [place] [address] Linda Hope MD Nurse Triage 09/12/2024 Refill [facility] [address] [place] [address] Amaya Irwin MD Vitamin D deficiency; Postmenopausal osteoporosis 09/08/2024 Telephone [facility] [address] [place] [address] Giancarlo Self MD No Show 09/07/2024 Telephone [facility] [address] [place] [phone] Linda Hope MD Nurse Triage 09/07/[address] [address] Linda Hope MD MRI Order 09/06/2024 1:30 PM EDT Clinical Support [facility] [address] [place] [address] Di Andres RN Back pain, unspecified back location, unspecified back pain laterality, unspecified chronicity (Primary Dx); Long-term current use of opiate analgesic 09/06/2024 Travel 09/01/2024 Refill [facility] [address] [place] [phone] Aditi Day MD Vitamin D deficiency; Benign essential hypertension; Allergy, initial encounter 08/29/2024 Refill [facility] [address] [place] [phone] Linda Hope MD Chronic pain syndrome 08/29/[address] [address] Linda Hope MD Primary insomnia from Last [...] is your housing situation today? I have paula vasquez 02/18/[address] you [...] Sign Reading Time Taken Comments Blood Pressure 136/92 11/10/2024 10:37 AM EDT Pulse 99 11/10/2024 10:37 AM EDT Temperature 37.2 C (99 F) 11/10/2024 10:37 AM EDT Respiratory Rate 16 11/10/2024 10:37 AM EDT Oxygen Saturation 99% 11/10/2024 10:37 AM EDT Inhaled Oxygen Concentration - - Weight 56.4 kg (124 lb 6.4 oz) 11/10/2024 10:37 AM EDT Height 157.5 cm (5' 2 ) 11/10/2024 10:37 AM EDT Body Mass Index 22.75 11/10/2024 10:37 AM EDT Plan of Treatment Upcoming Encounters Date Type Department Care Team ([facility] st Contact Info) Description 12/06/2024 1:30 PM EDT Clinical Support [facility] [address] [place] [address] Di Andres, RN [address] [place] [address] Health Maintenance Due Date Last Done Comments CT Colonography 1956 FIT DNA/Cologuard 1956 FIT 1956 FOBT 1955 Sigmoidoscopy 1955 Hepatitis C Screening 1974 Zoster Vaccines (2 of 3) 12/04/2016 10/09/2016 COVID-19 Vaccine ( - season) 2023 04/09/2021, 07/17/2020, 06/19/2020 Influenza Vaccine (#1) 2024 , 12/25/2022, 02/05/2022, Additional history exists Mammogram 01/12/2025 01/13/2024, 01/23/2022 Alcohol/Substance Use Screening 05/12/2025 05/12/2024 Depression Screening 05/12/2025 05/12/2024, 05/12/19 DTaP/Tdap/Td Vaccines (2 - Td or Tdap) 08/06/2025 08/07/2015 SDOH Screening 10/27/2025 10/27/2024 Tobacco Screening 11/10/2025 11/10/2024 Lipid Panel 11/04/2029 11/04/2024, 01/18, 09/10/2020, Additional history exists RSV Patients and Patients Aged 60 years [...] Procedure Name Priority Date/Time Associated Diagnosis Comments POCT COVID-19 AG CASTORENA ID NOW Routine 11/10/2024 10:45 AM EDT COVID-19 POCT INFLUENZA A (ID NOW RAPID MOLECULAR) Routine 11/10/2024 10:45 AM EDT COVID-19 POCT INFLUENZA B (ID NOW RAPID MOLECULAR) Routine 11/10/2024 10:45 AM EDT COVID-19 ALBUMIN, RANDOM URINE W/CREATININE Routine 11/04/2024 9:10 AM EDT Postmenopausal osteoporosis Benign hypertension BASIC METABOLIC PANEL, FASTING Routine 11/04/2024 9:08 AM EDT Postmenopausal osteoporosis Benign hypertension VITAMIN D,25-OH,TOTAL,IA Routine 11/04/2024 9:08 AM EDT Postmenopausal osteoporosis Benign hypertension HEPATIC FUNCTION PANEL Routine 11/04/2024 9:08 AM EDT Postmenopausal osteoporosis Benign hypertension LIPID PANEL, STANDARD Routine 11/04/2024 9:08 AM EDT Postmenopausal osteoporosis Benign hypertension CBC WITH AUTO DIFFERENTIAL Routine 11/04/2024 9:08 AM EDT Postmenopausal osteoporosis Benign hypertension MR LUMBAR SPINE WO CONTRAST Routine 09/29/2024 [...] EDT COLONOSCOPY Routine 12/16/2023 2:12 PM EDT HPV MRNA E6/E7 Routine 09/06/2020 4:14 PM EDT THINPREP PAP Routine 09/06/2020 4:14 PM EDT from Last 3 Months or Most Recently Relevant to Health Maintenance Results * Influenza B (ID NOW Rapid Molecular) (11/10/2024 10:45 AM EDT) Pathologist [facility] Influenza B Negative Negative, Indeterminate [facility] Swab 11/10/2024 10:4 5 AM EDT Jackie Woods DO POINT OF CARE TEST ENTER/ENOC T ORDERABLES Final Result Performing Organization Address [facility]/ZIP Co de Phone Number [facility] [address] [place] [phone] * Influenza A (ID NOW Rapid Molecular) (11/10/2024 10:45 AM EDT) Pathologist [facility] Influenza A Negative Negative, Indeterminate [facility] Swab 11/10/2024 10:4 5 AM EDT Jackie Woods DO POINT OF CARE TEST ENTER/ENOC T ORDERABLES Final Result Performing Organization Address [facility] Co de Phone Number [facility] [address] [place] [phone] * (ABNORMAL) POCT COVID-19 Ag Castorena ID NOW (11/10/2024 10:45 AM EDT) [facility] Coronavirus Antigen PCR Positive (A) Negative, Indeterminate, None Detected, Invalid, Specimen unsatisfactory for evaluation, Weakly Positive, 2+ Swab 11/10/2024 10:4 5 AM EDT Jackie Woods DO POINT OF CARE TEST ENTER/ENOC T ORDERABLES Final Result * Albumin, Random Urine W/Creatinine (11/04/2024 9:10 AM EDT) [facility] Creatinine, Urine 128.13 mg/dL [facility] Microalbumin Urine 29.0 mg/L [facility] Microalbum Creatinine Ratio Ur 22.6 <30 ug/mg cr [facility] Comment:Albumin/Creatinine R atio Reference Ranges: Normal: < 30 ug/mg creatinine Microalbuminuria: 30 - 300 ug/mg creatinineClinical Albuminuria: > 300 ug/mg creatinine Urine (Urine, Random) 11/04/2024 9:10 AM EDT 11/04/2024 1:44 PM EDT us Linda Hope MD LAB URINE ORDERABLES Final Re sult Performing Organization Address [facility] Co de Phone Number [facility] [address] [place] [phone] * (ABNORMAL) Basic Metabolic Panel, Fasting (11/04/2024 9:08 AM EDT) Sodium 142 135 - 145 mmol/L [facility] Potassium 3.6 3.3 - 5.1 mmol/L [facility] Chloride 108 96 - 108 mmol/L [facility] Carbon Dioxide 27 22 - 29 mmol/L [facility] Anion Gap 11(L) 12 - 20 [facility] Urea Nitrogen (BUN) 11 9 - 16 mg/dL [facility] Creatinine, Serum 0.60 0.5 - 1.4 mg/dL [facility] Estimated Glomerular Filt Rate >60 [facility] Comment:Chronic Kidney Disea se: Estimated GFR < 60 mL/min/[id number] Kidney Disease: Estimated GFR < 15 mL/min/1.73m2 Glucose Fasting 101(H) 60 - 99 mg/dL [facility] Comment:A fasting glucose fr om 100-125 mg/dl is considered impaired(pre-diabetes). Calcium 9.2 8.4 - 10.2 mg/dL [facility] Blood Venous blood specimen / Unknown 11/04/2024 9:08 AM EDT 11/04/2024 1:44 PM EDT us Linda Hope MD LAB BLOOD ORDERABLES Final Re sult Performing Organization Address [facility]/ZIP Co de Phone Number [facility] [address] [place] [phone] * Vitamin D, 25-Hydroxy, Total, Immunoassay (11/04/2024 9:08 AM EDT) Vitamin D 25-OH Total 68.0 >30 ng/mL [facility] Comment: Health Based Reference Values*< 20 ng/mL [id number] ng/mL Insufficient> 30 ng/mL Sufficient*Naty ORTIZ. N Engl J Med. 2007;357:266-280There is no well-established upper level of normal vitamin Dlevels. Some laboratories use 50 ng/mL as an upper limit ofnormal. However, toxicity is patient-dependent and may occurat any level. Careful correlation with the patient'spresentation is necessary and, if there is concern forvitamin D toxicity, treatment should be consideredirrespective of the serum level.Care must be taken in interpreting Vitamin D results fromdifferent laboratories and methodologies. Published datademonstrated that results from patients undergoinghemodialysis may show a negative bias when tested withvarious automated 25-OH vitamin D assays when compared toLC-MS/MS.When testing samples from patients whose predominant form ofVitamin D is Vitamin D2, such as patients receiving VitaminD2 supplementation, results that are subtherapeutic shouldbe confirmed with another method such as LC-MS/MS. Blood Venous blood specimen / Unknown 11/04/2024 9:08 AM EDT 11/04/2024 1:44 PM EDT us Linda Hope MD LAB BLOOD ORDERABLES Final Re sult [facility] [address] [place] [phone] * CBC auto differential (11/04/2024 9:08 AM EDT) White Blood Count 8.0 4.8 - 10.8 X10*3/uL [facility] Red Blood Count 4.47 4.20 - 5.50 X10*6/uL [facility] Hemoglobin 13.1 12.0 - 16.0 g/dl [facility] Hematocrit 39.3 37.0 - 47.0 % [facility] Mean Corpuscular Volume 87.9 80.0 - 98.0 fL [facility] Mean Corpuscular Hemoglobin 29.3 27.0 - 33.0 pg [facility] Mean Corpuscular HGB Conc 33.3 31.0 - 35.0 g/dl [facility] Red Cell Distribution Width 12.4 11.0 - 16.0 % [facility] Platelet Count 292 160 - 400 X10*3/uL [facility] Mean Platelet Volume 10.4 9.4 - 12.3 fL [facility] Neutrophils Percent Auto 57.7 45 - 73 % [facility] Imm Gran Pct Auto 0.2 0.0 - 0.4 % [facility] Lymphocytes Percent Auto 32.4 20 - 40 % [facility] Monocytes Percent Auto 6.1 2 - 11 % [facility] Eosinophils Percent Auto 3.1 0 - 4 % [facility] Basophils Percent Auto 0.5 0 - 2 % [facility] NRBC Pct Auto 0.0 0.0 - 0.2 /100WBC [facility] Neutrophils Absolute Auto 4.6 2.0 - 8.3 x10*3/uL [facility] Imm Gran Abs Auto 0.02 0.00 - 0.03 X10*3/uL [facility] Lymphocytes Absolute Auto 2.6 1.2 - 4.9 X10*3/uL [facility] Monocytes Absolute Auto 0.5 0.1 - 1.2 X10*3/uL [facility] Eosinophils Absolute Auto 0.3 0.0 - 0.4 X10*3/uL [facility] Basophils Absolute Auto 0.0 0.0 - 0.2 X10*3/uL [facility] NRBC Abs Auto 0.000 0.0 - 0.012 X10*3/uL [facility] Blood Venous blood specimen / Unknown 11/04/2024 9:08 AM EDT 11/04/2024 1:44 PM EDT Linda Hope MD LAB BLOOD ORDERABLES Final Re sult Performing Organization Address [facility]/ZIP Co de Phone Number [facility] [address] [place] [phone] * Hepatic Function Panel (11/04/2024 9:08 AM EDT) Bilirubin, Total 0.9 0.0 - 1.0 mg/dL [facility] Bilirubin, Direct 0.3 0.0 - 0.5 mg/dL [facility] Aspartate Amino Transferase 25 5 - 31 U/L [facility] Alanine Aminotransferase 15 0 - 31 U/L [facility] Total Protein 7.5 6.5 - 8.0 g/dL [facility] Albumin Level 4.5 3.5 - 5.0 g/dL [facility] Alkaline Phosphatase 85 39 - 117 U/L [facility] Blood Venous blood specimen / Unknown 11/04/2024 9:08 AM EDT 11/04/2024 1:44 PM EDT Linda Hope MD LAB BLOOD ORDERABLES Final Re sult Performing Organization Address [facility] Co de Phone Number [facility] [address] [place] [phone] * (ABNORMAL) Lipid Panel, Standard (11/04/2024 9:08 AM EDT) Triglycerides 160(H) <150 mg/dL [facility] Comment:Desirable Triglyceri de: less than 150 mg/dLBorderline High Triglyceride 150-199 mg/dLHigh Triglyceride: 200-499 mg/dLVery High Triglyceride: greater than or equal to 5OO mg/dL Cholesterol 188 <200 mg/dL [facility] Comment:Desirable Cholestero l: less than 200 mg/dLBorderline High Cholesterol: 200-239 mg/dLHigh Cholesterol: greater than 239 mg/dL LDL Cholesterol Calculated 108(H) <100 mg/dL [facility] Comment:Desirable LDL: less than 100 mg/dLNear Optimal/Above Optimal LDL: 110- 129 mg/dLBorderline High LDL: 130-159 mg/dLHigh LDL: 160-189 mg/dLVery High LDL: greater than or equal to 190 mg/dL HDL Cholesterol 48 >40 mg/dL [facility] Comment:Desirable HDL: great er than 40 mg/dL Note: This HDL assay may give artificially low results in patients with liver disease. Blood Venous blood specimen / Unknown 11/04/2024 9:08 AM EDT 11/04/2024 1:44 PM EDT us Linda Hope MD LAB BLOOD ORDERABLES Final Re sult [facility] [address] [place] [phone] * MR Lumbar Spine w/o Contrast (09/29/2024) [...] Expiration Date Urine 09/15/2024 3:47 PM EDT Result Filomena Hope MD POINT OF CARE TEST ENTER/EDIT ORDERABLES Final Result * POCT RAMIRO-14 Urine Drug Screen (09/06/2024 1:00 PM EDT) Urine Urine specimen obtained by clean catch procedure / Unknown 09/06/2024 1:00 PM EDT Narrative Di Andres RN - 09/06/2024 1:00 PM EDT negative AMP, BAR, BUP, BZO, MAICOL, FTY, MDMA, MET, MOP, MTD, OXY, PCP, TCA, THC. Lot# [id number] Exp: 12-07-25 Result [facility] Linda Hope MD POINT OF CARE TEST ENTER/EDIT ORDERABLES Final Result * Hm Mammography (01/13/2024 8:56 AM EDT) Anatomical Region Laterality Modality Other Result [facility] Historical Provider HEALTH MAINTENANCE Final Result * Colonoscopy (12/16/2023 2:12 PM EDT) Anatomical Region Laterality Modality Endoscopy Result [facility] Historical Provider ENDOSCOPY PROCEDURE ORDER ZITA Edited Result - Final * THINPREP PAP (09/06/2020 4:14 PM EDT) [...] along with historic and current clinical information. Dialysis Nurse: SEE COMMENT [facility] Comment: HJP, CT(ASCP) CT screening location: [address] [address] Interpretation/Res ult: SEE COMMENT [facility] Comment: Negative for intraepithelial lesion or malignancy. Atrophic pattern; predominantly parabasal cells LMP: NONE [facility] Prev. BX: NONE [facility] Prev. PAP: NONE [facility] SOURCE: None given [facility] Statement Of Adequacy: SATISFACTORY FOR EVALUATION [facility] 09/06/2020 4:14 PM EDT Linda Hope MD LAB PATHOLOGY ORDERABLES Ruth l Result Performing Organization Address [facility] Co de Phone Number [facility] [address] * HPV mRNA E6/E7 (09/06/2020 4:14 PM EDT) HPV nRNA E6/E7 Not Detected Not Detected [facility] Comment: Methodology: Workers Compensation Specialist-Mediated Amplification This assay detects E6/E7 viral messenger RNA (mRNA) from 14 high-risk HPV types (16,18,31,33,35,39,45,51,52,56,58,59,66,68). The analytical performance characteristics of this assay have been determined by [employer]. The modifications have not been cleared or approved by the FDA. This assay has been validated pursuant to the CLIA regulations and is used for clinical purposes. For additional information, please refer to http://education.[employer]/faq/GXN514x4 (This link if provided for information/ educational purposes only.) 09/06/2020 4:14 PM EDT us Linda Hope MD LAB BLOOD ORDERABLES Final Re sult Performing Organization Address [facility] Co de Phone Number [facility] [address] from Last 3 Months or Most Recently Relevant to Health Maintenance Insurance [address] [place] [address] [facility] [employer] (HMO D-SNP) [facility] STANDARD Care Teams Banking Consultant Relationship Specialty Start Date End Date Linda Hope MD [address] [place] [phone] PCP - General Family Medicine 04/20/18
--- OUTSIDE RECORDS SUMMARY | 2024-11-10 12:17 | XMS_ITS | Clinical Summary ---
Author Organization [facility] ity Address [address] [place] [address] Care Team Providers Care Internet Salesperson Name Role Phone Unavailable Primary Care Provider [...]
== END 2024-11-10 11:20 | disposition home or self-care (01) ==
LOC: HO.XRAY 11:19
PROVIDERS: PCP Family Medicine; Visit Provider Family Medicine
DX: R05.1 Acute cough (principal)
CPT/HCPCS: 71046

== ENCOUNTER → 2024-11-10 11:38 | Outpatient (BNV) | payer OTHER, SELFPAY | PROVIDERS: PCP Family Medicine; Visit Provider Radiology Diagnostic Radiology | DX: R05.9 Cough, unspecified (principal) | CPT/HCPCS: 71046 ==